=== PATIENT | female | born 1945 | race Caucasian/White ===

== ENCOUNTER 2022-04-29 14:00 | Emergency (ER) | payer MEDICARE, OTHER ==
[~2022-04-29] VITALS: Ht 162.6 cm; Wt 68.0 kg
[2022-04-29 14:05] VITALS: BP 105/68
--- NOTE | 2022-04-29 14:10 | NUR ---
c/o severe back pain (unresolved by Percocet 5/325 mg) chronic back pain x 2 years - lives in [place]; to er bed 4.
[2022-04-29] MEDS ORDERED: OXYC-128 PO (14:12)
--- NOTE | 2022-04-29 14:30 | NUR ---
dr scruggs at bedside for eval
--- NOTE | 2022-04-29 15:10 | NUR ---
SPOKE W/ CHERRY KAMARA, AT [facility] ([id number]). REPORT GIVEN TO NURSE; NURSE AT [facility] STATES THAT THEY ARE NOT AWARE OF PT BEING SENT HERE TO THE ER.
--- NOTE | 2022-04-29 15:11 | NUR ---
[facility] ADDRESS: [id number], [place] [address]
--- NOTE | 2022-04-29 16:45 | NUR ---
[facility] TRANSPORT ETA 90MINS PER JOELLE
--- NOTE | 2022-04-29 17:52 | NUR ---
EMT AT BEDSIDE TO [facility]ICKUP PT
--- NOTE | 2022-04-29 18:19 | NUR ---
Patient discharged back to [facility] via [facility], in stable condition, accompanied by 2 market development trainer. Written and verbal after care instructions given. Patient verbalizes understanding of instruction.
== END 2022-04-29 18:21 ==
LOC: ER 14:05
DX: G89.29 Other chronic pain (principal); M54.9 Dorsalgia, unspecified; Z79.899 Other long term (current) drug therapy